=== PATIENT | male | born 1980 | race Hispanic/Latino ===

== ENCOUNTER 2019-04-21 14:58 | Emergency (ER) | payer SELFPAY ==
[~2019-04-21] VITALS: Ht 177.8 cm; Wt 90.0 kg
[2019-04-21] MEDS ORDERED: VOLTAREN - GENE75 MG PO (16:16)
[2019-04-21 16:20] VITALS: BP 160/96
== END 2019-04-21 16:23 | disposition home or self-care (01) | DRG 563 ==
LOC: ED 14:58
DX: S83.91XA Sprain of unspecified site of right knee, initial encounter (principal); S43.402A Unspecified sprain of left shoulder joint, initial encounter; M25.512 Pain in left shoulder; M25.561 Pain in right knee; X50.1XXA Overexertion from prolonged static or awkward postures, initial encounter; V58.4XXA Person boarding or alighting a pick-up truck or van injured in noncollision transport accident, initial encounter; Y92.009 Unspecified place in unspecified non-institutional (private) residence as the place of occurrence of the external cause

== ENCOUNTER 2022-01-23 12:46 | Emergency (ER) | payer SELFPAY ==
[~2022-01-23] VITALS: Ht 177.8 cm; Wt 98.0 kg
[~2022-01-23 12:46] MED LIST: VOLTAREN - GENE75 MG PO
[2022-01-23 16:23] LABS: HEMATOCRIT 42.9 % (39.0-50.0); HEMOGLOBIN 14.8 g/dl (14.0-18.0); IMMATURE GRANULOCYTES 0.2 % (0.0-5.0); MEAN CELL VOLUME 93.3 fL CALC (80.0-100.0); MEAN CORPUSCULAR HGB 32.2 pG CALC (26.0-32.0); MEAN CORPUSCULAR HGB CONC 34.5 g/dL CAL (32.0-36.0); NEUT# 3.2 thou/uL (1.82-7.42); RED BLOOD COUNT 4.6 mill/uL (4.70-6.10); RED CELL DISTRI WIDTH 12.5 % (11.5-15.5)
[2022-01-23 16:24] LABS: URINE BILIRUBIN - DIPSTICK NEGATIVE (NEGATIVE); URINE BLOOD DIPSTICK NEGATIVE (NEGATIVE); URINE COLOR YELLOW; URINE GLUCOSE - DIPSTICK NEGATIVE (NEGATIVE); URINE KETONE NEGATIVE (NEGATIVE); URINE LEUK ESTERASE NEGATIVE (NEGATIVE); URINE PROTEIN - DIPSTICK NEGATIVE (NEG-TRACE); URINE SPECIFIC GRAVITY >=1.030; URINE UROBILINOGEN - DIPSTICK 0.2 E.U./dL (0.2)
[2022-01-23 16:30] LABS: ALBUMIN 4.4 g/dL (3.2-5.0); ALKALINE PHOSPHATASE 86 u/l (38-126); ANION GAP 13 (6-22 (CALC)); BUN 14 mg/dL (9-20); BUN/CREATININE RATIO 17 (12-20 (CALC)); CARBON DIOXIDE 28 mmol/l (22-30); CHLORIDE 103 mmol/l (95-108); CREATININE 0.8 mg/dL (0.7-1.3); GFR > 60 ML/MIN (>=60 (CALC)); GFR FOR AFR.AMER. > 60 ML/MIN (>=60 (CALC)); LIPASE 36 u/l (23-300); POTASSIUM 3.6 mmol/l (3.5-5.1); SGOT/AST 29 u/l (17-59); SODIUM 141 mmol/l (137-146); TOTAL PROTEIN 7.6 g/dL (6.3-8.2)
[2022-01-23 16:30] LABS: URINE NITRITE - DIPSTICK NEGATIVE (Negative)
[2022-01-23 17:13] VITALS: BP 160/78
== END 2022-01-23 17:39 | disposition home or self-care (01) | DRG 395 ==
LOC: ED 12:46
PROVIDERS: Family Medicine
DX: K42.9 Umbilical hernia without obstruction or gangrene (principal); F17.200 Nicotine dependence, unspecified, uncomplicated

== ENCOUNTER 2022-01-28 02:11 | Emergency (ER) | payer SELFPAY ==
[2022-01-28] VITALS (23 sets, daily range): BP systolic 127–204; BP diastolic 79–130
[~2022-01-28] VITALS: Ht 177.8 cm; Wt 82.0 kg
[2022-01-28 02:56] LABS: HEMATOCRIT 42.7 % (39.0-50.0); HEMOGLOBIN 14.8 g/dl (14.0-18.0); IMMATURE GRANULOCYTES 0.6 % (0.0-5.0); MEAN CELL VOLUME 92.6 fL CALC (80.0-100.0); MEAN CORPUSCULAR HGB 32.1 pG CALC (26.0-32.0); MEAN CORPUSCULAR HGB CONC 34.7 g/dL CAL (32.0-36.0); NEUT# 6.11 thou/uL (1.82-7.42); RED BLOOD COUNT 4.61 mill/uL (4.70-6.10); RED CELL DISTRI WIDTH 12.2 % (11.5-15.5)
[2022-01-28 03:13] LABS: ALBUMIN 4.3 g/dL (3.2-5.0); ALKALINE PHOSPHATASE 85 u/l (38-126); ANION GAP 12 (6-22 (CALC)); BILIRUBIN, TOTAL 0.8 mg/dL (0.0-1.4); BUN 15 mg/dL (9-20); BUN/CREATININE RATIO 15 (12-20 (CALC)); CARBON DIOXIDE 26 mmol/l (22-30); CHLORIDE 104 mmol/l (95-108); ETHYL ALCOHOL 0 mg/dl (0-30); GFR > 60 ML/MIN (>=60 (CALC)); GFR FOR AFR.AMER. > 60 ML/MIN (>=60 (CALC)); POTASSIUM 3.4 mmol/l (3.5-5.1); SGOT/AST 24 u/l (17-59); SODIUM 138 mmol/l (137-146); TOTAL PROTEIN 7.7 g/dL (6.3-8.2)
[2022-01-28 03:15] LABS: ACT PARTIAL THROMBO TIME 28.1 SECONDS (20.0-32.5); INTERNATIONAL NORMALIZED RATIO 0.9 RATIO (0.7-1.3); PROTHROMBIN TIME 9.7 SECONDS (9.0-12.5)
[2022-01-28 03:19] LABS: D-DIMER 0.25 mg/L (0.19-0.60)
[2022-01-28 03:24] LABS: MYOGLOBIN 29 ng/mL (0 - 121)
[2022-01-28] MEDS ORDERED: LISINOP/HCTZ1 TA2 PO (04:09)
== END 2022-01-28 04:43 | disposition home or self-care (01) | DRG 305 ==
LOC: ED 02:11
PROVIDERS: Family Medicine
DX: I10 Essential (primary) hypertension (principal); F10.10 Alcohol abuse, uncomplicated; F17.210 Nicotine dependence, cigarettes, uncomplicated

== ENCOUNTER 2022-02-19 10:52 | Day surgery (SDC) | payer SELFPAY ==
[~2022-02-19 10:52] MED LIST changes: +ATORVASTATIN CA40 MG PO; +BUPROPION150 M3 PO; +LISINOP/HCTZ1 TA2 PO
[2022-02-19] MEDS ORDERED: PERCOCET 5/321 COMBO PO (14:00)
[2022-02-19 15:15] VITALS: BP 128/89
== END 2022-02-19 15:05 | disposition home or self-care (01) | DRG 355 ==
LOC: ORM 10:52
PROVIDERS: ATTEND Surgery
PROC: 0WQF0ZZ Repair Abdominal Wall, Open Approach (ICD-10-PCS; principal; 2022-02-19)
DX: K42.9 Umbilical hernia without obstruction or gangrene (principal); I10 Essential (primary) hypertension